=== PATIENT | male | born 1965 | race Caucasian/White ===

== ENCOUNTER 2017-07-23 14:30 | Inpatient (IN) ==
[2017-07-23] MEDS ORDERED: IPRATROPIUM/ALBUTEROL 3 ML AMPUL.NEB NEB PRN (14:31)
[2017-07-23] MEDS ORDERED: SCOPOLAMINE 1 PATCH PATCH TOPICAL PRN (14:31)
[2017-07-23 15:58] LABS: Appearance,Urine CLEAR; Bilirubin,Urine NEG (NEG); Color,Urine YELLOW; Glucose,Urine (UA) NEGATIVE (NEG); Leukocyte Esterase,Urine NEG /uL (NEG); Protein,Urine NEG (NEG); Specific Gravity,Urine 1.023 (1.000-1.035); Urine Blood NEG mg/dL (<0.03); Urobilinogen,Urine NEG (NEG)
[2017-07-23 19:10] LABS: Basophils # (Auto) 0 K/mcL (0.0-0.3); Basophils % (Auto) 0.5 % (0.0-2.0); Eosinophils # (Auto) 0.4 K/mcL (0.0-0.7); Eosinophils % (Auto) 4.5 % (0.0-7.0); Granulocytes % (Auto) 53.7 % (38.0-78.0); Lymphocytes # (Auto) 2.7 K/mcL (1.5-4.8); Lymphocytes % (Auto) 31.4 % (15.5-49.0); Mean Cell Volume 87.4 fL (80.0-100.0); Mean Corpuscular HGB Conc 33.5 g/dL (31.0-36.0); Mean Corpuscular Hemoglobin 29.2 pg (26.0-34.0); Monocytes # (Auto) 0.9 K/mcL (0.1-0.9); Monocytes % (Auto) 9.9 % (1.0-12.0); Platelet Count 316 K/mcL (140-440); RBC 5.26 M/mcL (4.50-5.90); Red Cell Distribution Width 13.2 % (11.5-14.5)
[2017-07-23 19:23] LABS: Blood Urea Nitrogen 16 mg/dl (6-20)
[2017-07-29] MEDS ORDERED: oxyCODONE 10 MG TAB.ER.12H PO SCH (05:00)
[2017-07-29] MEDS ORDERED: ceFAZolin 1 GM VIAL IV SCH (05:00)
[2017-07-29] MEDS ORDERED: PREGABALIN 75 MG CAPSULE PO SCH (05:00)
[2017-07-29] MEDS ORDERED: KETOROLAC 30 MG, ROPIVACAINE HCL/PF 49.5 ML, EPINEPHrine 0.5 MG, 0.9 % SODIUM CHLORIDE ... IJ SCH (06:30)
[2017-07-29] MEDS ORDERED: KETAMINE 100 MG/ML ML IV ONE (14:45)
[2017-07-29] MEDS ORDERED: ETOMIDATE 20 MG/10 ML VIAL IV ONE (14:45)
[2017-07-29] MEDS ORDERED: MIDAZOLAM 2 MG/2 ML VIAL IV ONE (14:45)
[2017-07-29] MEDS ORDERED: LIDOCAINE HCL/PF 100 MG/5 ML SYRINGE IV ONE (14:45)
[2017-07-29] MEDS ORDERED: GLYCOPYRROLATE 0.2 MG/ML VIAL IV ONE (14:45)
[2017-07-29] MEDS ORDERED: PROPOFOL 200 MG/20 ML VIAL IV ONE (14:45)
[2017-07-29] MEDS ORDERED: TRANEXAMIC ACID 1,000 MG/10 ML VIAL IV ONE ×2 (14:45→16:43)
[2017-07-29] MEDS ORDERED: ROPIVACAINE HCL/PF 30 ML VIAL IJ ONE (14:45)
[2017-07-29] MEDS ORDERED: ONDANSETRON 4 MG/2 ML VIAL IV ONE (14:45)
[2017-07-29] MEDS ORDERED: GENTAMICIN SULFATE 800 MG/20 ML VIAL IR ONE (15:37)
[2017-07-29] MEDS ORDERED: ACETAMINOPHEN 1,000 MG/100 ML BOTTLE IV ONE (16:34)
[2017-07-29] MEDS ORDERED: PROMETHAZINE 25 MG/ML VIAL IV PRN (16:34)
[2017-07-29] MEDS ORDERED: MEPERIDINE 25 MG/ML SYRINGE IV PRN (16:34)
[2017-07-29] MEDS ORDERED: METHOCARBAMOL 1,000 MG/10 ML VIAL IV PRN (16:34)
[2017-07-29] MEDS ORDERED: IPRATROPIUM/ALBUTEROL 3 ML AMPUL.NEB NEB PRN (16:34)
[2017-07-29] MEDS ORDERED: BENZOCAINE/MENTHOL 1 LOZENGE PO PRN (16:43)
[2017-07-29] MEDS ORDERED: ONDANSETRON ODT 4 MG TABLET SL PRN (16:43)
[2017-07-29] MEDS ORDERED: MAGNESIUM HYDROXIDE 30 ML ORAL.SUSP PO PRN (16:43)
[2017-07-29] MEDS ORDERED: ONDANSETRON 4 MG/2 ML VIAL IV PRN (16:43)
[2017-07-29] MEDS ORDERED: BISACODYL 10 MG SUPP.RECT PR PRN (16:43)
[2017-07-29] MEDS ORDERED: ACETAMINOPHEN 325 MG TABLET PO PRN (16:43)
[2017-07-29] MEDS ORDERED: FLEETS ADULT ENEMA PR PRN (16:43)
[2017-07-29] MEDS ORDERED: METHOCARBAMOL 750 MG TABLET PO PRN (16:43)
[2017-07-29] MEDS ORDERED: POLYETHYLENE GLYCOL 3350 17 GM PACKET PO PRN (16:43)
--- NOTE | 2017-07-29 16:43 | Brief Operative Note ---
Date of procedure: 07/29/17 Pre-op diagnosis: right knee oa Post-op diagnosis: same Procedure: right total knee arthroplasty Grafts/Implants: Yes Anesthesia: spinal Complications: none Surgeon: Christopher Hoover Die Tripper: Dena Nichols Estimated blood loss (cc): 100 Tourniquet Time (Minutes): 79 Specimens Removed/Pathology: none sent Condition: stable Disposition: PACU
[2017-07-29] MEDS ORDERED: LACTATED RINGERS 1,000 ML IV SCH (16:45)
--- NOTE | 2017-07-29 17:46 | XRay Report ---
HISTORY: Reason for Exam:Post-Op Total Knee FINDINGS: There is a well positioned total knee prosthesis. There is no fracture or abnormal soft tissue calcification around the joint. IMPRESSION: Well-positioned right knee prosthesis Interpreted and Authenticated by: Zeke Paiz 07/29/17
[2017-07-29] MEDS: fentaNYL 100 MCG/2 ML VIAL IV PRN ×2 (17:50→17:56)
[2017-07-29] MEDS: 0.9 % SODIUM CHLORIDE 1,000 ML IV SCH (18:19)
[2017-07-29] MEDS: KETOROLAC 15 MG/ML VIAL IV SCH (18:19)
[2017-07-29] MEDS ORDERED: SENNOSIDES 1 TABLET PO SCH (21:00)
[2017-07-29] MEDS: ASPIRIN 325 MG ENTERIC COATED TABLET PO SCH (21:49)
[2017-07-29] MEDS: HYDROcodone/APAP 10/325MG TABLET PO PRN (21:50)
[2017-07-29] MEDS: DOCUSATE SODIUM 100 MG CAPSULE PO SCH (21:50)
[2017-07-29] MEDS: 0.9 % SODIUM CHLORIDE 10 ML SYRINGE IV SCH (21:50)
[2017-07-29] MEDS: ceFAZolin 1 GM VIAL IV SCH (22:06)
[2017-07-30] MEDS: KETOROLAC 15 MG/ML VIAL IV SCH ×3 (00:08→13:26)
[2017-07-30] MEDS: 0.9 % SODIUM CHLORIDE 1,000 ML IV SCH ×2 (00:09→08:56)
[2017-07-30] MEDS: ceFAZolin 1 GM VIAL IV SCH (05:57)
[2017-07-30] MEDS: 0.9 % SODIUM CHLORIDE 10 ML SYRINGE IV SCH (07:07)
--- NOTE | 2017-07-30 07:22 | Operative Note ---
DATE OF OPERATION: 07/29/2017 PREOPERATIVE DIAGNOSIS: Degenerative joint disease, right knee. POSTOPERATIVE DIAGNOSIS: Degenerative joint disease, right knee. PROCEDURE: Right total knee arthroplasty. SURGEON: Velasquez Hoover M.D. MEDICAL TECHNICIAN SURGEON: Dena Nichols PA-C ANESTHESIA: Spinal with LMA assist. ESTIMATED BLOOD LOSS: 100 mL COMPLICATIONS: None noted. SPECIMENS REMOVED: None. DRAINS: None. TOURNIQUET TIME: 79 minutes at 300 mmHg. IMPLANTS: DePuy CMW2 bone cement 20 grams x4, DePuy Attune femoral posterior stabilized size 8 right cemented, DePuy Attune tibial insert fixed bearing posterior stabilized size 8, 7 mm AOX, DePuy Attune patella medialized dome 40 mm cemented AOX, DePuy Attune knee system revision tibial based fixed bearing size 7 cemented. INDICATIONS: The patient has had a long-standing history of worsening pain in the knee that has failed conservative treatment. Radiographs have confirmed advanced degenerative joint disease. After a long discussion about treatment options, the patient elected to proceed with a knee arthroplasty. The risks and benefits were discussed with the patient in detail including, but not limited to, the risks of anesthesia, problems with the heart or lungs related to anesthesia, infection, compromise or injury to the nerves and blood vessels, deep venous thrombosis, pulmonary embolism, pneumonia, continued pain after surgery, worsening pain or symptoms after surgery, swelling, loss of motion, instability, leg length discrepancy, and need for repeat surgery. DESCRIPTION OF PROCEDURE: The patient was seen in the pre-anesthesia waiting room where all questions were answered and the correct side and site were identified and marked. The patient was transferred to the operating room and administered the anesthetic and given pre-operative antibiotics. A time-out was then called. The extremity was prepped and draped, exsanguinated, and the tourniquet was inflated to 300 mmHg. A midline skin incision was then made with a standard medial parapatellar arthrotomy. Debridement of the menisci, ACL, and PCL was performed followed by balancing releases in the medial lateral plane. We then established intramedullary access to both the femur and tibia in a standard fashion. The femoral guide beulah was initially placed with the distal femoral guide, pinned into place, and the distal femoral cut was performed and checked with a flat plate. We then turned our attention to the tibia. The intramedullary guide was placed with the proximal tibial cutting block. The block was appropriately positioned off the affected side, varus and valgus was checked with the extra-medullary guide, and the block was pinned into place. The proximal tibial cut was performed and the tibia was prepared for the tibial implant with appropriate rotation. The tibia, femur, and posterior compartment were debrided of osteophytes, loose bodies, and meniscal fragments We then used the gap balancing technique to balance extension with the first two cuts and good balancing was obtained with a 10 millimeter gap block. We turned our attention back to the femur and used the referencing block and implant to size appropriately. Using the gap balancing technique for the flexion space we set our rotation of the femur off the tibial cut. Anesthesia gave the patient 1 gram of Tranexamic Acid via an intravenous route. We placed the 4 in 1 cutting block and made anterior, posterior, and chamfer cuts. Box plasty cuts were then made in a standard fashion for the posterior stabilized prosthesis. We then completed osteophyte release and posterior capsule release from the posterior compartment. Trials were placed and we chose the polyethylene insert thickness that provided the best stability in all planes. With the trials in place, we did a measured resection for a resurfacing patella. We sized the patella and placed the patella trial and performed a lateral facetectomy with the saw and rongeur. Good tracking was obtained. We removed all trials, irrigated and dried all cut surfaces. We cemented the components into place including tibia, femur and patella. We placed a trial liner and held the knee in full extension with the patella compressed while the cement cured. We then removed all excess cement and placed the final polyethylene tibiofemoral component. Irrigation with 3 liters of antibiotic saline was then performed using jet-lavage. We let the tourniquet down and coagulated bleeding vessels. We injected a 100 cubic centimeter volume including Ropivacaine 49.25 cubic centimeters at 5 milligrams per cubic centimeter, Ketorolac 30 milligrams, and Epinephrine 0.5 milligrams into 100 cubic centimeters volume of normal saline. We closed the retinaculum with #2 Stratafix. We closed the subcutaneous tissue and skin in layers out to Dermabond on the skin. A sterile pressure dressing was applied. All needle and sponge counts were correct. The patient was transferred to the recovery room in stable condition. MARIANA:ivy Job ID: [id number] Doc ID: [id number] Velasquez Hoover MD
[2017-07-30] MEDS: HYDROcodone/APAP 10/325MG TABLET PO PRN ×2 (07:29→12:40)
--- NOTE | 2017-07-30 07:40 | Orthopedic Progress Note ---
Subjective Patient information: Note initiated : 07/30/17 at 7:39 am Service Date, if different from initiated Date: [] Patient: Ever Osorio 52 y/o M admitted on 07/29/17 for Right Knee Total Arthroplasty. Chief Complaint: [] Interval history: doing well. pain under control Objective Vital signs: Vital Signs Temp Pulse Resp BP BP Pulse Ox 07/30/17 07:38 98.0 F 90 12 112/57 98 07/30/17 03:26 98.6 F 80 12 106/69 95 07/30/17 00:00 98.0 F 82 12 109/70 96 07/29/17 21:17 98.1 F 81 12 97/60 94 07/29/17 20:17 86 115/79 94 07/29/17 19:47 81 109/75 91 07/29/17 19:17 78 114/64 97 07/29/17 19:02 77 108/70 94 07/29/17 18:47 82 111/69 96 07/29/17 18:32 81 118/81 97 07/29/17 18:17 97.2 F 80 12 134/82 97 07/29/17 18:10 98.4 F 77 18 133/83 99 07/29/17 17:57 75 12 88/67 98 07/29/17 17:42 89 22 135/81 97 07/29/17 17:27 98.0 F 84 15 110/60 95 07/29/17 17:22 88 16 115/66 95 07/29/17 17:17 87 14 70/49 96 07/29/17 17:12 98.0 F 88 16 98/48 96 07/29/17 12:00 97.3 F 95 H 18 137/79 96 07/29/17 11:04 18 Intake and Output 07/29/17 07/30/17 07/30/17 21:59 05:59 13:59 Intake Total 2600 / 2600 2375 / 2375 Output Total 585 / 585 1650 / 1650 Balance 2014 725 / 725 Intake: IV 100 / 100 1000 / 1000 Sodium Chloride 0.9% 1,000 ml @ 1000 / 1000 125 mls/hr IV .Q8H [facility] Rx#: [id number] Oral 800 / 800 1375 / 1375 IV - Manual Only 1700 / 1700 Output: Urine Catheter Amount 450 / 450 Straight 450 / 450 Void Amount 1650 / 1650 Estimated Blood Loss 135 / 135 Other: Meal Melrude, apple sauce Percent of Meal Consumed 100% Feeding Ability Independent Weight 283 lb 8 oz Intake & Output: Intake & Output 07/29/17 07/30/17 07/30/17 21:59 05:59 13:59 Intake Total 2600 / 2600 2375 / 2375 Output Total 585 / 585 1650 / 1650 Balance 2014 725 / 725 Weight 283 lb 8 oz Intake: IV 100 / 100 1000 / 1000 Sodium Chloride 0.9% 1,000 ml @ 1000 / 1000 125 mls/hr IV .Q8H [facility] Rx#: [id number] Oral 800 / 800 1375 / 1375 IV - Manual Only 1700 / 1700 Output: Urine Catheter Amount 450 / 450 Straight 450 / 450 Void Amount 1650 / 1650 Estimated Blood Loss 135 / 135 Other: Meal Melrude, apple sauce Percent of Meal Consumed 100% Feeding Ability Independent Incision: Yes healing Incision clean and dry: Yes Dressing: Yes clean, Yes dry, Yes intact Weight bearing status: full Neurological exam IM: Yes abnormal gait, Yes alert, Yes oriented X3, Yes motor sensory intact, Yes neurovascular intact Extremities exam IM: No calf tenderness, Yes Foot pink and warm, Yes neurovascular intact - Labs CBC & BMP: 07/30/17 04:05 07/23/17 14:52 Labs: Orthopedic Labs 07/23/17 14:52 PT 13.6 INR 1.0 07/30/17 07/23/17 04:05 14:53 Hgb 12.9 L 15.4 Hct 38.0 L 46.0 Assessment and Plan (1) Knee osteoarthritis pod 1 s/p tka wbat pain control dvt prophylaxis d/c planning Status: Acute
--- NOTE | 2017-07-30 07:41 | Discharge Summary ---
Ortho Discharge - TKA - Patient Instructions Diet: Regular Diet Activity: activity as tolerated, ambulate with assistive device, weight bearing as tolerated Total Knee Protocol: For Total Knee: Start ROM ANDREA with stationary bike or rocking chair. Work on gaining full extension of knee. Posterior dislocation precautions provided. Hip abductor strengthening and gait training instructions provided. Apply Cryocuff as instructed. Dressing Care: May shower in 2 days Patient Education: Total Knee Replacement (DC) - Problem Maintenance (1) Knee osteoarthritis Status: Acute - Follow Up Plan Follow Up Appointments: Christopher Hoover MD [Physician] - 08/13/17 9:00 am Disposition: Home, Self-Care Prognosis: Good Rehab Potential: Good I certify that the patient requires SNF services: No Overall status at discharge: patient is progressing back to baseline
[2017-07-30] MEDS ORDERED: FERROUS SULFATE 325 MG TABLET PO SCH (08:00)
[2017-07-30] MEDS: DOCUSATE SODIUM 100 MG CAPSULE PO SCH (08:47)
[2017-07-30] MEDS: ASPIRIN 325 MG ENTERIC COATED TABLET PO SCH (08:47)
[2017-07-30] MEDS ORDERED: LISINOPRIL 10 MG TABLET PO SCH (09:00)
[2017-07-30] MEDS ORDERED: HYDROCHLOROTHIAZIDE 12.5 MG CAPSULE PO SCH (09:00)
== END 2017-07-30 14:32 | disposition home or self-care (01) | DRG 470 ==
LOC: MEDSUR 07-29 11:04 → EDSTATUS 07-29 12:30 → MEDSUR 07-29 17:49
PROVIDERS: ADMIT Orthopaedic Surgery Sports Medicine; ATTEND Orthopaedic Surgery Sports Medicine

== ENCOUNTER 2018-12-15 04:46 | Inpatient (IN) ==
[2018-12-09 19:21] LABS: Appearance,Urine CLEAR; Bilirubin,Urine NEG (NEG); Color,Urine YELLOW; Glucose,Urine (UA) NEGATIVE (NEG); Ketones,Urine NEG (NEG); Leukocyte Esterase,Urine NEG /uL (NEG); Nitrate,Urine NEG (NEG); Protein,Urine NEG (NEG); Specific Gravity,Urine 1.026 (1.000-1.035); Urine Blood NEG mg/dL (<0.03); Urobilinogen,Urine NEG (NEG)
[2018-12-09 20:17] LABS: Blood Urea Nitrogen 22 mg/dl (6-20); Calcium 9.3 mg/dl (8.6-10.4); Carbon Dioxide 24 mmol/L (22-30); Chloride 103 mmol/L (96-108); Glomerular Filtration Rate 76; Glucose 78 mg/dL (70-105)
[2018-12-09 20:27] LABS: Basophils # (Auto) 0.1 K/mcL (0.0-0.3); Basophils % (Auto) 0.7 % (0.0-2.0); Eosinophils # (Auto) 0.2 K/mcL (0.0-0.7); Granulocytes % (Auto) 65.6 % (38.0-78.0); Hematocrit 41.5 % (41.0-55.0); Hemoglobin 13.9 g/dL (13.5-16.5); Lymphocytes # (Auto) 1.8 K/mcL (1.5-4.8); Lymphocytes % (Auto) 20.1 % (15.5-49.0); Mean Cell Volume 87.9 fL (80.0-100.0); Mean Corpuscular HGB Conc 33.6 g/dL (31.0-36.0); Mean Platelet Volume 7.4 fL (7.4-10.4); Monocytes % (Auto) 11.6 % (1.0-12.0); Platelet Count 287 K/mcL (140-440); RBC 4.72 M/mcL (4.50-5.90); Red Cell Distribution Width 13.5 % (11.5-14.5); WBC 8.9 K/mcL (4.5-11.0)
[2018-12-15] MEDS ORDERED: SCOPOLAMINE 1 PATCH PATCH TOPICAL PRN (05:00)
[2018-12-15] MEDS ORDERED: IPRATROPIUM/ALBUTEROL 3 ML AMPUL.NEB NEB PRN ×2 (05:00→09:13)
[2018-12-15] MEDS ORDERED: oxyCODONE 10 MG TAB.ER.12H PO SCH (06:00)
[2018-12-15] MEDS ORDERED: ceFAZolin 3 GM in DEXTROSE 5% IN WATER 50 ML IV SCH (06:00)
[2018-12-15] MEDS ORDERED: PREGABALIN 75 MG CAPSULE PO SCH (06:00)
[2018-12-15] MEDS ORDERED: CELECOXIB 200 MG CAPSULE PO SCH (06:00)
[2018-12-15] MEDS ORDERED: 0.9 % SODIUM CHLORIDE 9 ML, KETOROLAC 30 MG, ROPIVACAINE HCL/PF 49.5 ML, EPINEPHrine 0.... IJ SCH (06:00)
[2018-12-15] MEDS ORDERED: GENTAMICIN SULFATE 800 MG/20 ML VIAL IR ONE (06:58)
[2018-12-15] MEDS ORDERED: ROPIVACAINE HCL/PF 20 ML VIAL IJ ONE (07:35)
[2018-12-15] MEDS ORDERED: KETAMINE 100 MG/ML ML IV ONE (07:35)
[2018-12-15] MEDS ORDERED: PROPOFOL 200 MG/20 ML VIAL IV ONE (07:35)
[2018-12-15] MEDS ORDERED: LIDOCAINE HCL/PF 100 MG/5 ML SYRINGE IV ONE (07:35)
[2018-12-15] MEDS ORDERED: fentaNYL 250 MCG/5 ML VIAL IV ONE (07:35)
[2018-12-15] MEDS ORDERED: TRANEXAMIC ACID 1,000 MG/10 ML VIAL IV ONE ×2 (07:35→09:36)
[2018-12-15] MEDS ORDERED: DEXAMETHASONE 10 MG/ML VIAL IV ONE (07:35)
[2018-12-15] MEDS ORDERED: ONDANSETRON 4 MG/2 ML VIAL IV ONE (07:35)
[2018-12-15] MEDS ORDERED: MIDAZOLAM 5 MG/5 ML VIAL IV ONE (07:35)
[2018-12-15] MEDS ORDERED: ACETAMINOPHEN 1,000 MG/100 ML BOTTLE IV ONE (09:13)
[2018-12-15] MEDS ORDERED: fentaNYL 100 MCG/2 ML VIAL IV PRN (09:13)
[2018-12-15] MEDS ORDERED: METHOCARBAMOL 1,000 MG/10 ML VIAL IV PRN (09:13)
[2018-12-15] MEDS ORDERED: ONDANSETRON 4 MG/2 ML VIAL IV PRN ×2 (09:13→09:36)
[2018-12-15] MEDS ORDERED: MEPERIDINE 25 MG/ML SYRINGE IV PRN (09:13)
[2018-12-15] MEDS ORDERED: LACTATED RINGERS 1,000 ML IV SCH (09:15)
[2018-12-15] MEDS ORDERED: BISACODYL 10 MG SUPP.RECT PR PRN (09:36)
[2018-12-15] MEDS ORDERED: ONDANSETRON 4 MG ODT TABLET SL PRN (09:36)
[2018-12-15] MEDS ORDERED: POLYETHYLENE GLYCOL 3350 17 GM PACKET PO PRN (09:36)
[2018-12-15] MEDS ORDERED: MAGNESIUM HYDROXIDE 30 ML ORAL.SUSP PO PRN (09:36)
[2018-12-15] MEDS ORDERED: METHOCARBAMOL 750 MG TABLET PO PRN (09:36)
[2018-12-15] MEDS ORDERED: BENZOCAINE/MENTHOL 1 LOZENGE PO PRN (09:36)
[2018-12-15] MEDS ORDERED: FLEETS ADULT ENEMA PR PRN (09:36)
--- NOTE | 2018-12-15 09:36 | Brief Operative Note ---
Date of procedure: 12/15/18 Pre-op diagnosis: left knee osteoarthritis Post-op diagnosis: same Procedure: left total knee arthroplasty Grafts/Implants: Yes Anesthesia: spinal Complications: none Surgeon: Christopher Hoover Barrel Cutter: Dena Nichols Estimated blood loss (cc): 150 Tourniquet Time (Minutes): 70 Specimens Removed/Pathology: none sent Condition: stable Disposition: PACU
--- NOTE | 2018-12-15 09:49 | Operative Note ---
DATE OF OPERATION: 12/15/2018 PREOPERATIVE DIAGNOSIS: Degenerative joint disease, left knee. POSTOPERATIVE DIAGNOSIS: Degenerative joint disease, left knee. PROCEDURE: Left total knee arthroplasty. SURGEON: Velasquez Hoover M.D. STEEL SASH ERECTOR SURGEON: Dena Nichols PA-C. The PA's assistance was required for the safe and efficient completion of the entire case. This provider's expertise and technical skill were required throughout the case. The PA assisted with preoperative coordination, intraoperative retraction, wound closure, dressing and splint application, as well as postoperative documentation and care coordination. ANESTHESIA: Spinal with LMA assist. ESTIMATED BLOOD LOSS: 150 mL. COMPLICATIONS: None noted. SPECIMENS REMOVED: None. DRAINS: None. TOURNIQUET TIME: 70 minutes at 300 mmHg. IMPLANTS: DePuy Attune patella medialized dome 41 mm cemented AOX; DePuy Attune tibial insert fixed bearing posterior stabilized size 8, 6 mm AOX; DePuy Attune femoral posterior stabilized size 8 left, cemented; DePuy Attune tibial revision knee base fixed bearing size 7, cemented; DePuy CMW2 bone cement 20 grams x6. INDICATIONS: The patient has had a long-standing history of worsening pain in the knee that has failed conservative treatment. Radiographs have confirmed advanced degenerative joint disease. After a long discussion about treatment options, the patient elected to proceed with a knee arthroplasty. The risks and benefits were discussed with the patient in detail including, but not limited to, the risks of anesthesia, problems with the heart or lungs related to anesthesia, infection, compromise or injury to the nerves and blood vessels, deep venous thrombosis, pulmonary embolism, pneumonia, continued pain after surgery, worsening pain or symptoms after surgery, swelling, loss of motion, instability, leg length discrepancy, and need for repeat surgery. DESCRIPTION OF PROCEDURE: The patient was seen in the pre-anesthesia waiting room where all questions were answered and the correct side and site were identified and marked. The patient was transferred to the operating room and administered the anesthetic and given pre-operative antibiotics. A time-out was then called. The extremity was prepped and draped, exsanguinated, and the tourniquet was inflated to 300 mmHg. A midline skin incision was then made with a standard medial parapatellar arthrotomy. Debridement of the menisci, ACL, and PCL was performed followed by balancing releases in the medial lateral plane. We then established intramedullary access to both the femur and tibia in a standard fashion. The femoral guide beulah was initially placed with the distal femoral guide, pinned into place, and the distal femoral cut was performed and checked with a flat plate. We then turned our attention to the tibia. The intramedullary guide was placed with the proximal tibial cutting block. The block was appropriately positioned off the affected side, varus and valgus was checked with the extra-medullary guide, and the block was pinned into place. The proximal tibial cut was performed and the tibia was prepared for the tibial implant with appropriate rotation. The tibia, femur, and posterior compartment were debrided of osteophytes, loose bodies, and meniscal fragments We then used the gap balancing technique to balance extension with the first two cuts and good balancing was obtained with a 10 millimeter gap block. We turned our attention back to the femur and used the referencing block and implant to size appropriately. Using the gap balancing technique for the flexion space we set our rotation of the femur off the tibial cut. Anesthesia gave the patient 1 gram of Tranexamic Acid via an intravenous route. We placed the 4 in 1 cutting block and made anterior, posterior, and chamfer cuts. Box plasty cuts were then made in a standard fashion for the posterior stabilized prosthesis. We then completed osteophyte release and posterior capsule release from the posterior compartment. Trials were placed and we chose the polyethylene insert thickness that provided the best stability in all planes. With the trials in place, we did a measured resection for a resurfacing patella. We sized the patella and placed the patella trial and performed a lateral facetectomy with the saw and rongeur. Good tracking was obtained. We removed all trials, irrigated and dried all cut surfaces. We cemented the components into place including tibia, femur and patella. We placed a trial liner and held the knee in full extension with the patella compressed while the cement cured. We then removed all excess cement and placed the final polyethylene tibiofemoral component. Irrigation with 3 liters of antibiotic saline was then performed using jet-lavage. We let the tourniquet down and coagulated bleeding vessels. We injected a 100 cubic centimeter volume including Ropivacaine 49.25 cubic centimeters at 5 milligrams per cubic centimeter, Ketorolac 30 milligrams, and Epinephrine 0.5 milligrams into 100 cubic centimeters volume of normal saline. We closed the retinaculum with a combination of #2 Stratafix and 0 Vicryl. We closed the subcutaneous tissue and skin in layers out to Dermabond on the skin. A sterile pressure dressing was applied. All needle and sponge counts were correct. The patient was transferred to the recovery room in stable condition. MARIANA:rich Job ID: [id number] Doc ID: [id number] Velasquez Hoover MD
--- NOTE | 2018-12-15 10:18 | XRay Report ---
HISTORY: Postop left knee arthroplasty FINDINGS: There is a well-positioned left total knee prosthesis. There is no fracture or abnormal soft tissue calcification around the joint. IMPRESSION: Well-positioned left knee prosthesis Interpreted and Authenticated by: Zeke Paiz 12/15/18
[2018-12-15] MEDS: 0.9 % SODIUM CHLORIDE 1,000 ML IV SCH ×2 (10:34→17:55)
[2018-12-15] MEDS: KETOROLAC 15 MG/ML VIAL IV SCH ×2 (11:09→17:54)
--- NOTE | 2018-12-15 15:43 | Discharge Summary ---
Ortho Discharge - TKA - Patient Instructions Diet: Regular Diet Activity: ambulate with assistive device, weight bearing as tolerated Total Knee Protocol: For Total Knee: Start ROM ANDREA with stationary bike or rocking chair. Work on gaining full extension of knee. Posterior dislocation precautions provided. Hip abductor strengthening and gait training instructions provided. Apply Cryocuff as instructed. Dressing Care: May shower in 2 days - Follow Up Plan Follow Up Appointments: Dena Nichols PA-C [Physician Labeling Specialist] - 01/17/19 9:40 am Disposition: Home, Self-Care Prognosis: Good Rehab Potential: Good I certify that the patient requires SNF services: No Overall status at discharge: patient is progressing back to baseline
[2018-12-15] MEDS: 0.9 % SODIUM CHLORIDE 10 ML SYRINGE IV SCH ×2 (15:53→21:51)
[2018-12-15] MEDS: ceFAZolin 1 GM VIAL IV SCH (16:02)
[2018-12-15] MEDS: HYDROcodone/APAP 10/325MG TABLET PO PRN ×2 (16:19→21:54)
[2018-12-15] MEDS ORDERED: SENNOSIDES 1 TABLET PO SCH (21:00)
[2018-12-15] MEDS: ASPIRIN 325 MG ENTERIC COATED TABLET PO SCH (21:49)
[2018-12-15] MEDS: DOCUSATE SODIUM 100 MG CAPSULE PO SCH (21:49)
[2018-12-16] MEDS: ceFAZolin 1 GM VIAL IV SCH (00:08)
[2018-12-16] MEDS: KETOROLAC 15 MG/ML VIAL IV SCH ×2 (00:14→05:54)
[2018-12-16] MEDS: 0.9 % SODIUM CHLORIDE 1,000 ML IV SCH (01:00)
[2018-12-16] MEDS: HYDROcodone/APAP 10/325MG TABLET PO PRN ×2 (04:14→08:35)
[2018-12-16] MEDS: 0.9 % SODIUM CHLORIDE 10 ML SYRINGE IV SCH (05:54)
[2018-12-16 06:53] LABS: Hematocrit 36.4 % (41.0-55.0); Hemoglobin 12.3 g/dL (13.5-16.5)
--- NOTE | 2018-12-16 07:39 | Orthopedic Progress Note ---
Subjective Patient information: Note initiated : 12/16/18 at 7:38 am Service Date, if different from initiated Date: [] Patient: Ever Osorio 53 y/o M admitted on 12/15/18 for Left Total Knee Arthroplasty . Chief Complaint: [] Interval history: doing well. no pain. wants to head home Objective Vital signs: Vital Signs Temp Pulse Resp BP Pulse Ox 12/16/18 04:08 97.7 F 89 16 94/55 96 12/15/18 23:04 99.8 F H 90 16 90/56 94 12/15/18 20:26 98.1 F 100 H 20 110/69 94 12/15/18 16:50 97.5 F 98 H 14 116/77 92 12/15/18 14:00 95 H 120/73 93 12/15/18 13:08 95 H 119/75 97 12/15/18 12:38 91 H 111/74 96 12/15/18 12:08 86 111/74 95 12/15/18 11:53 85 106/73 93 12/15/18 11:38 85 114/74 92 12/15/18 11:26 94 12/15/18 11:23 84 102/63 95 12/15/18 11:08 82 106/71 95 12/15/18 10:20 97.9 F 86 14 128/74 97 12/15/18 10:15 97.9 F 89 13 124/73 98 12/15/18 10:10 90 14 124/75 98 12/15/18 10:05 95 H 20 127/78 98 12/15/18 10:00 94 H 14 147/72 100 12/15/18 09:55 92 H 12 148/69 100 12/15/18 09:50 97 H 13 146/77 100 12/15/18 09:47 97.9 F 102 H 20 98 12/15/18 08:00 97.5 F 80 16 119/79 96 Intake and Output 12/15/18 12/16/18 12/16/18 21:59 05:59 13:59 Intake Total 5899 1300 Output Total 2226 1150 575 Balance 3673 150 -575 Intake: IV 919 1000 Sodium Chloride 0.9% 1,000 ml @ 919 1000 125 mls/hr IV .Q8H [facility] Rx#: [id number] Oral 4980 300 Output: Void Amount 2225 1150 575 # of times incontinent of urine 1 Other: Meal Dinner Percent of Meal Consumed 100% Urine Color Straw Urine Odor Normal Weight 274 lb Intake & Output: Intake & Output 12/15/18 12/16/18 12/16/18 21:59 05:59 13:59 Intake Total 5899 1300 Output Total 2226 1150 575 Balance 3673 150 -575 Weight 274 lb Intake: IV 919 1000 Sodium Chloride 0.9% 1,000 ml @ 919 1000 125 mls/hr IV .Q8H [facility] Rx#: [id number] Oral 4980 300 Output: Void Amount 2225 1150 575 # of times incontinent of urine 1 Other: Meal Dinner Percent of Meal Consumed 100% Urine Color Straw Urine Odor Normal Incision: Yes healing Incision clean and dry: Yes Dressing: Yes clean, Yes dry, Yes intact Weight bearing status: full Neurological exam IM: Yes alert, Yes normal gait, Yes oriented X3, Yes motor sensory intact, Yes neurovascular intact Extremities exam IM: No calf tenderness, Yes Foot pink and warm, Yes neurovascular intact - Labs CBC & BMP: 12/16/18 04:14 12/09/18 15:03 Labs: 12/16/18 12/09/18 04:14 15:03 Hgb 12.3 L 13.9 Hct 36.4 L 41.5 Assessment and Plan (1) Knee osteoarthritis pod 1 s/p tka wbat pain control dvt prophylaxis d/c planning - home today Status: Acute
[2018-12-16] MEDS: ASPIRIN 325 MG ENTERIC COATED TABLET PO SCH (08:30)
[2018-12-16] MEDS: DOCUSATE SODIUM 100 MG CAPSULE PO SCH (08:30)
[2018-12-16] MEDS ORDERED: HYDROCHLOROTHIAZIDE 12.5 MG CAPSULE PO SCH (09:00)
[2018-12-16] MEDS ORDERED: LISINOPRIL 10 MG TABLET PO SCH (09:00)
== END 2018-12-16 09:55 | disposition home or self-care (01) | DRG 470 ==
LOC: MEDSUR 04:46
PROVIDERS: ADMIT Orthopaedic Surgery Sports Medicine; ATTEND Orthopaedic Surgery Sports Medicine